=== PATIENT | female | born 1960 | race Caucasian/White ===

== ENCOUNTER 2018-05-21 17:48 | Inpatient (IN) | payer BC ==
[2018-05-21] MEDS ORDERED: ACETAMINOPHEN 325 MG TABLET ONE (18:53)
[2018-05-21 18:54] LABS: Absolute Monocytes 1.7 K/uL (0.1-1.3); Absolute Neutrophil 11.6 K/uL (1.8-8.0); Basophils % 0.6 % (0-1.3); Eosinophils % 3.5 % (0-4.4); Hematocrit 42.5 % (36.0-45.0); Lymphocytes % 17.6 % (15.3-44.8); Monocytes % 10.1 % (3.3-12.3); RBC Red Blood Cell Count 4.65 M/uL (3.86-4.86)
[2018-05-21] MEDS ORDERED: NA CHLORIDE 0.9% 1,000 ML ONE (18:54)
[2018-05-21 19:18] LABS: Albumin 3.4 g/dL (3.4-5.0); Bilirubin Direct 0.3 mg/dL (0-0.2); Bilirubin Total 1.3 mg/dL (0.2-1.0); Potassium 4.8 mmol/L (3.5-5.1); Protein, Total 8.5 g/dL (6.4-8.2)
[2018-05-21] MEDS ORDERED: MORPHINE 2 MG/ML SYR IV PRN (20:22)
[2018-05-21] MEDS ORDERED: ONDANSETRON 4 MG/2 ML VIAL IV PRN (20:22)
[2018-05-21] MEDS ORDERED: ACETAMINOPHEN 500 MG TAB PO PRN (20:22)
--- NOTE | 2018-05-21 20:27 | RAD REPORT ---
EXAM DESCRIPTION: CT - Chest Abd Pelvis Wo Con - 05/21/2018 7:59 pm CLINICAL HISTORY: Chest pain, abdominal pain COMPARISON: CT chest 2010, CT abdomen 2010 TECHNIQUE: Axial 5 millimeter thick images of the chest abdomen and pelvis were obtained without ora l or IV contrast. Sagittal and coronal reconstruction images were generated and reviewed. All CT scans are performed using dose optimization technique as appropriate and may include automated exposure control or mA/KV adjustment according to patient size. FINDINGS: Patchy reticulonodular opacities are present in the right upper lobe and minimally in the right middle and right lower lobes. These are most likely areas of pneumonia. No suspicious mass lesi on. Small nodule along the major fissure on the right not clearly different from prior imaging. No pn eumothorax or pleural effusion. No chest wall mass or abnormal axillary lymphadenopathy seen. Media stinal and hilar regions show no mass or lymphadenopathy. No significant cardiac finding. Bronchial calcifications are present. No endobronchial lesion. Esophagus is grossly normal but limited in asses sment. The liver, spleen and pancreas show no significant findings. Gallbladder and biliary tree are normal . Symmetric renal function is seen with no hydronephrosis, mass or other significant finding. No adren al abnormalities. No urinary bladder abnormalities. Uterus is absent. No suspicious ovarian finding . Small remnant ovarian cyst noted on the right. This has not change from 2011. No dilated bowel loops or focal ball bowel wall thickening. No free air, free fluid or inflammatory stranding. Small mesenteric lymph nodes are present. Disc and bony degenerative changes are present. IMPRESSION: Patchy pneumonia changes are present in the right lung field seen as reticulonodular opa [place] primarily right upper lobe. No dense consolidation or mass. Small mesenteric lymph nodes are present. These are nonspecific. The pattern is less pronounced than seen previously. These may be remnants of the patient's prior lymphoma history. No new or progressive lymphadenopathy.
[2018-05-21 20:35] LABS: Urine Amorphous Sediment 1+ /HPF (NONE SEEN); Urine Bacteria 20-50 /HPF (<20); Urine Culture Reflex Order REFLEXED; Urine Mucus LIGHT /HPF (NONE SEEN); Urine RBC <5 /HPF (NONE SEEN)
--- NOTE | 2018-05-21 20:37 | ER ---
Nurse's Notes [facility] Name: Tanisha Andreson Age: 58 yrs Sex: Female : 1960 Arrival Date: 05/21/2018 Time: 17:51 Bed 14 Private MD: Diagnosis: Pneumonia;UTI;Strep Pharyngitis;Dehydration Presentation: 05/21 18:00 Presenting complaint: Patient states: sore throat, nausea, vomiting,and diarrhea that aa5 began Saturday. Pt also c/o generalized weakness. 18:00 Transition of care: patient was not received from another setting of care. aa5 18:00 Method Of Arrival: Wheelchair aa5 18:00 Onset of symptoms was May 2018. aa5 18:00 Risk Assessment: Do you want to hurt yourself or someone else? Patient reports no aa5 desire to harm self or others. Initial Sepsis Screen: Does the patient meet any 2 criteria? Mean Arterial Pressure (MAP) < 65. Does the patient have a suspected source of infection? Yes: Other: Nausea/vomiting/diarrhea/sore throat. Care prior to arrival: None. 18:00 Acuity: SURENDRA 2 aa5 Historical: - Allergies: 18:14 Augmentin; aa5 18:14 Clindamycin; aa5 18:14 Erythromycin; aa5 18:14 Levaquin; aa5 18:14 Meperidine; aa5 18:14 Ciprofloxacin; aa5 18:14 Cefaclor; aa5 18:14 PENICILLINS; aa5 18:14 Latex, Natural Rubber; aa5 18:14 Macrobid; aa5 18:14 Vancomycin; aa5 18:14 Sulfa (Sulfonamide Antibiotics); aa5 18:14 Fluconazole; aa5 - PMHx: 18:00 HIV; Hypertension; Hodgkin's lymphoma (currently in remission); aa5 - PSHx: 18:00 Hysterectomy; aa5 - Immunization history:: Adult Immunizations unknown. - Ebola Screening: : No symptoms or risks identified at this time. - Social history:: Smoking status: unknown. Screenin:15 Abuse screen: Denies threats or abuse. Nutritional screening: No deficits noted. aa5 Tuberculosis screening: No symptoms or risk factors identified. Fall Risk None identified. Assessment: 18:00 General: Appears uncomfortable, Behavior is calm, cooperative. Pain: Complains of pain aa5 in buttocks Quality of pain is described as "raw from the diarrhea". Neuro: Level of Consciousness is awake, alert, obeys commands, Oriented to person, place, time, situation, Air Bag Builder are weak bilaterally Moves all extremities. Gait is steady, Speech is normal, Facial symmetry appears normal, Pupils are PERRLA. Cardiovascular: Heart tones S1 S2 present Rhythm is regular. Respiratory: Airway is patent Respiratory effort is even, unlabored, Respiratory pattern is regular, symmetrical, Breath sounds are clear bilaterally. GI: Abdomen is round non-distended, Bowel sounds present X 4 quads. Abd is soft and non tender X 4 quads. Reports diarrhea, nausea, vomiting. : No signs and/or symptoms were reported regarding the genitourinary system. EENT: Oral mucosa is dry. Reports nasal congestion sore throat . Derm: Skin is pink, warm \\T\\ dry. Musculoskeletal: Range of motion: intact in all extremities. 19:27 General: Appears in no apparent distress. uncomfortable, Behavior is calm, cooperative. ao Pain: Complains of pain in thoat Pain currently is 3 out of 10 on a pain scale. Neuro: Level of Consciousness is awake, alert, obeys commands, Oriented to person, place, time, situation, Moves all extremities. Full function Speech is normal, Facial symmetry appears normal, Pupils are PERRLA. Cardiovascular: Heart tones S1 S2 present Capillary refill < 3 seconds. Respiratory: Airway is patent Respiratory effort is even, unlabored, Respiratory pattern is regular, symmetrical. GI: Abdomen is round non-distended. : No signs and/or symptoms were reported regarding the genitourinary system. EENT: Reports nasal congestion throat pain. Derm: Skin is pink, warm \\T\\ dry. normal. Musculoskeletal: Range of motion: intact in all extremities. 20:30 Reassessment: Patient appears in no apparent distress at this time. Patient is alert, ao oriented x 3, equal unlabored respirations, skin warm/dry/pink. 21:29 Reassessment: Patient appears in no apparent distress at this time. Patient is alert, ao oriented x 3, equal unlabored respirations, skin warm/dry/pink. Patient to be admitted to the hospital. Waiting on report to be called. 22:31 Reassessment: Report called to ELZA Martinez. Patient to be taken to his room. ao Vital Signs: 18:00 BP 98 / 43; Pulse 89; Resp 18 S; Temp 101.1(O); Pulse Ox 96% on R/A; Weight 92.08 kg aa5 (R); Pain 6/10; 18:45 BP 110 / 52; Pulse 89; Resp 20 S; Pulse Ox 95% on R/A; aa5 19:26 BP 118 / 58; Pulse 80; Resp 18; Temp 100.3(O); Pulse Ox 95% on R/A; ao ED Course: 17:51 Patient arrived in ED. as 18:00 Arm band placed on. aa5 18:00 Patient has correct armband on for positive identification. Placed in gown. Bed in low aa5 position. Call light in reach. Side rails up X2. 18:05 Enid Hair, ELZA is Primary Nurse. aa5 18:07 Triage completed. aa5 18:11 Keny Garcia PA is PHCP. [facility] 18:11 Homer Gómez MD is Attending Physician. [facility] 18:38 Radiology exam delayed due to lab results not completed at this time. (BUN/Creatinine). wa 18:38 Initial lab(s) drawn, by de, sent to lab. Inserted saline lock: 22 gauge in right upper aa5 arm, using aseptic technique. Blood collected. 19:00 Report given to ELZA Sotelo. [facility] 19:16 Radiology exam delayed due to lab results not completed at this time. (BUN/Creatinine). jg6 19:58 Chest Abd Pelvis Wo Con In Process Unspecified. EDMS 19:58 CT completed. Patient tolerated procedure well. Patient moved to CT. Patient moved back wa from CT. 20:34 Antonio Bustillo MD is Hospitalizing Provider. [facility] 22:32 No provider procedures requiring assistance completed. Patient admitted, IV remains in ao place. Administered Medications: 18:45 Drug: NS 0.9% 1000 ml Route: IV; Rate: 1 bolus; Site: right upper arm; aa5 21:27 Follow up: IV Status: Completed infusion ao 18:45 Drug: Tylenol 650 mg Route: PO; aa5 21:26 Follow up: Response: No adverse reaction ao Outcome: 20:37 Decision to Hospitalize by Provider. [facility] 22:32 Admitted to Med/surg accompanied by tech, room 228, Report called to ELZA Martinez ao 22:32 Condition: stable 22:32 Instructed on the need for admit. 22:36 Patient left the ED. ao Signatures: Dispatcher [employer] EDMS Keny Garcia PA PA jmm Martinez, Amelia as Calderon, Audri RN RN aa5 Deepak De La Garza RN RN vincent Zelaya, Familia Jacob, Graciela gray6 Corrections: (The following items were deleted from the chart) 18:06 18:00 BP 98 / 43; aa5 aa5 18:16 18:00 BP 98 / 43; Pulse 89bpm; aa5 aa5 18:17 18:00 Initial Sepsis Screen: Does the patient meet any 2 criteria? No. Patient's aa5 initial sepsis screen is negative. Does the patient have a suspected source of infection? No. Patient's initial sepsis screen is negative. aa5 18:25 18:00 Acuity: SURENDRA 3 aa5 aa5
--- NOTE | 2018-05-21 20:38 | EDPHYS ---
Physician Documentation [facility] Name: Tanisha Anderson Age: 58 yrs Sex: Female : 1960 Arrival Date: 05/21/2018 Time: 17:51 Bed 14 Private MD: ED Physician Homer Gómez HPI: 05/21 18:36 This 58 yrs old Female presents to ER via Wheelchair with complaints of jmm Weakness, Vomiting. 18:36 The patient presents to the emergency department with nausea, vomiting, diarrhea. jmm Onset: The symptoms/episode began/occurred gradually, 4 day(s) ago. Possible causes: unknown. This is a 58 year old female with a history of htn, HIV, that presents to the ED with complaints of fever, sore throat, vomiting, diarrhea beginning this past Saturday. Patient states she takes her antiretroviral medications as directed. Patient is 4 years in remission of hodgekinds lymphoma, patient is not taking chemo therapy. . Historical: - Allergies: 18:14 Augmentin; aa5 18:14 Clindamycin; aa5 18:14 Erythromycin; aa5 18:14 Levaquin; aa5 18:14 Meperidine; aa5 18:14 Ciprofloxacin; aa5 18:14 Cefaclor; aa5 18:14 PENICILLINS; aa5 18:14 Latex, Natural Rubber; aa5 18:14 Macrobid; aa5 18:14 Vancomycin; aa5 18:14 Sulfa (Sulfonamide Antibiotics); aa5 18:14 Fluconazole; aa5 - PMHx: 18:00 HIV; Hypertension; Hodgkin's lymphoma (currently in remission); aa5 - PSHx: 18:00 Hysterectomy; aa5 - Immunization history:: Adult Immunizations unknown. - Ebola Screening: : No symptoms or risks identified at this time. - Social history:: Smoking status: unknown. ROS: 18:36 Constitutional: Negative for fever, chills, and weight loss, Eyes: Negative for injury, jmm pain, redness, and discharge, ENT: Negative for injury, pain, and discharge, Neck: Negative for injury, pain, and swelling, Cardiovascular: Negative for chest pain, palpitations, and edema, Respiratory: Negative for shortness of breath, cough, wheezing, and pleuritic chest pain. 18:36 ENT: Positive for sore throat. 18:36 Abdomen/GI: Positive for abdominal pain, vomiting, diarrhea. 18:36 All other systems are negative. Exam: 18:36 Constitutional: This is a well developed, well nourished patient who is awake, alert, jmm and in no acute distress. Head/Face: atraumatic. Eyes: EOMI, no conjunctival erythema appreciated Neck: Trachea midline, Supple Chest/axilla: Normal chest wall appearance and motion. Cardiovascular: Regular rate and rhythm. No edema appreciated Respiratory: Normal respirations, no respiratory distress appreciated 18:36 Skin: General appearance color normal MS/ Extremity: Moves all extremities, no obvious deformities appreciated, no edema noted to the lower extremities Neuro: Awake and alert, normal gait Psych: Behavior is normal, Mood is normal, Patient is cooperative and pleasant 18:36 ENT: Mouth: Oral mucosa: dry, Posterior pharynx: erythema, that is moderate. 18:36 Abdomen/GI: Inspection: abdomen appears normal, Bowel sounds: normal, Palpation: soft, mild abdominal tenderness, in all quadrants. 18:36 Back: ROM is normal. 18:36 Musculoskeletal/extremity: ROM: intact in all extremities. 18:36 Skin: Appearance: Color: normal in color. 18:36 Neuro: Orientation: is normal, Mentation: is normal, Memory: is normal. 18:36 Psych: Behavior/mood is pleasant, cooperative. Vital Signs: 18:00 BP 98 / 43; Pulse 89; Resp 18 S; Temp 101.1(O); Pulse Ox 96% on R/A; Weight 92.08 kg aa5 (R); Pain 6/10; 18:45 BP 110 / 52; Pulse 89; Resp 20 S; Pulse Ox 95% on R/A; aa5 19:26 BP 118 / 58; Pulse 80; Resp 18; Temp 100.3(O); Pulse Ox 95% on R/A; ao MDM: 18:11 Patient medically screened. karen 20:32 Data reviewed: vital signs, nurses notes. Counseling: I had a detailed discussion with haylee the patient and/or guardian regarding: the historical points, exam findings, and any diagnostic results supporting the discharge/admit diagnosis, lab results, radiology results, the need for further work-up and treatment in the hospital. ED course: I discussed the patient with Dr. Bustillo whom accepted admission. . 05/21 18:27 Order name: Basic Metabolic Panel; Complete Time: 19:21 [facility] 05/21 18:27 Order name: CBC with Diff; Complete Time: 19:14 [facility] 05/21 18:27 Order name: Creatinine for Radiology; Complete Time: 19:18 [facility] 05/21 18:27 Order name: Hepatic Function; Complete Time: 19:21 [facility] 05/21 18:27 Order name: Lipase; Complete Time: 19:21 [facility] 05/21 18:27 Order name: Strep; Complete Time: 19:24 [facility] 05/21 18:27 Order name: Flu; Complete Time: 19:24 [facility] 05/21 18:44 Order name: Procalcitonin; Complete Time: 19:42 [facility] 05/21 18:44 Order name: Lactate; Complete Time: 20:27 [facility] 05/21 18:44 Order name: Blood Culture Adult (2) [facility] 05/21 19:23 Order name: Urine Microscopic Only; Complete Time: 20:41 05/21 20:24 Order name: Urine Dipstick--Ancillary (enter results); Complete Time: 20:47 [facility] 05/21 20:27 Order name: CBC with Automated Diff [facility] 05/21 20:27 Order name: CBC with Automated Diff [facility] 05/21 18:27 Order name: IV Saline Lock; Complete Time: 18:40 [facility] 05/21 18:27 Order name: Labs collected and sent; Complete Time: 18:40 [facility] 05/21 19:23 Order name: Urine Dipstick-Ancillary (obtain specimen); Complete Time: 21:26 05/21 19:28 Order name: Chest Abd Pelvis Wo Con; Complete Time: 20:29 [facility] 05/21 20:27 Order name: CONS Pharmacy Consult [facility] 05/21 20:27 Order name: Regular EDMS 05/21 20:27 Order name: Comprehensive Metabolic Panel [facility] 05/21 20:27 Order name: Comprehensive Metabolic Panel EDNM Administered Medications: 18:45 Drug: NS 0.9% 1000 ml Route: IV; Rate: 1 bolus; Site: right upper arm; aa5 21:27 Follow up: IV Status: Completed infusion ao 18:45 Drug: Tylenol 650 mg Route: PO; aa5 21:26 Follow up: Response: No adverse reaction ao Disposition: 05/22 08:00 Co-signature as Attending Physician, Homer Gómez MD I agree with the assessment and karen plan of care. Disposition: 05/21/18 20:37 Hospitalization ordered by Antonio Bustillo for Observation. Preliminary diagnosis are Pneumonia, UTI, Strep Pharyngitis, Dehydration. - Bed requested for Telemetry/MedSurg (observation). - Status is Observation. ao - Condition is Stable. - Problem is new. - Symptoms have improved. UTI on Admission? Yes Signatures: Dispatcher [employer] [facility] Homer Gómez MD MD cha Mickail, Joel, PA PA [facility] Enid Hair, RN RN aa5 Honey Jacob, RN RN cg Deepak De La Garza RN RN ao Bonner, MD NABIL Prince gs Corrections: (The following items were deleted from the chart) 05/21 19:28 18:28 Chest Abdomen Pelvis W Con+CT.RAD.BRZ ordered. [facility] 20:51 20:37 Hospitalization Ordered by Antonio Bustillo MD for Observation. Preliminary cg diagnosis is Pneumonia; UTI; Strep Pharyngitis; Dehydration. Bed requested for Telemetry/MedSurg (observation). Status is Observation. Condition is Stable. Problem is new. Symptoms have improved. UTI on Admission? Yes. [facility] 22:36 20:51 05/21/2018 20:37 Hospitalization Ordered by Antonio Bustillo MD for Observation. ao Preliminary diagnosis is Pneumonia; UTI; Strep Pharyngitis; Dehydration. Bed requested for Telemetry/MedSurg (observation). Status is Observation. Condition is Stable. Problem is new. Symptoms have improved. UTI on Admission? Yes. cg
[2018-05-21 20:44] LABS: Urine Blood TRACE (NEG); Urine Glucose NEGATIVE (NEG); Urine Protein 1+ (NEG); Urine Specific Gravity 1.025 (1.005-1.030); Urine pH 5.5 (5.0-7.0)
[2018-05-21 22:53] VITALS: BMI 35.9
[2018-05-21] MEDS: NA CHLORIDE 0.9% 1,000 ML IV SCH (23:30)
[2018-05-22 06:06] LABS: Absolute Lymphocytes (CBC) 2.3 K/uL (0.7-4.9); Absolute Monocytes 1.7 K/uL (0.1-1.3); Absolute Neutrophil 8.3 K/uL (1.8-8.0); Basophils % 0.6 % (0-1.3); Eosinophils % 4.6 % (0-4.4); Hematocrit 37.2 % (36.0-45.0); Lymphocytes % 17.6 % (15.3-44.8); Monocytes % 12.9 % (3.3-12.3); RBC Red Blood Cell Count 4.08 M/uL (3.86-4.86)
[2018-05-22 06:23] LABS: Albumin 3.2 g/dL (3.4-5.0); Potassium 4.1 mmol/L (3.5-5.1); Protein, Total 7.7 g/dL (6.4-8.2)
[2018-05-22] MEDS: NA CHLORIDE 0.9% 1,000 ML IV SCH ×2 (08:40→16:47)
[2018-05-22] MEDS ORDERED: Meropenem 500 MG VIAL IV SCH (09:00)
[2018-05-22] MEDS: Meropenem 500 MG in NA CHLORIDE 0.9% 100 ML IV SCH ×2 (09:04→16:47)
--- NOTE | 2018-05-22 16:46 | P.PN ---
Subjective Date of Service: 05/22/18 Subjective: No C/O voiced, Improving, Doing well, Other (Diarrhea x 4 overnight and diarrhea x 2 today) Review of Systems 10-point ROS is otherwise unremarkable Physical Examination - Vital Signs Temperature: 99.6 F Blood Pressure: 109/52 Pulse: 86 Respirations: 18 Pulse Ox (%): 98 - Physical Exam General: Alert, In no apparent distress HEENT: Atraumatic, PERRLA, EOMI Neck: Supple, JVD not distended Respiratory: Clear to auscultation bilaterally, Normal air movement Cardiovascular: Regular rate/rhythm, Normal S1 S2 Gastrointestinal: Normal bowel sounds, No tenderness Musculoskeletal: No tenderness Integumentary: No rashes Neurological: Normal speech, Normal tone, Normal affect Lymphatics: No axilla or inguinal lymphadenopathy - Studies Laboratory Data (last 24 hrs) 05/22/18 05:28: Sodium 138, Potassium 4.1, BUN 32 H, Creatinine 1.51 H, Glucose 97, Total Bilirubin 1.0, AST 50 H, ALT 28, Alkaline Phosphatase 89 05/22/18 05:28: WBC 12.9 H D, Hgb 12.8, Hct 37.2, Plt Count 161 05/21/18 18:38: Creatinine 1.69 H 05/21/18 18:38: WBC 17.1 H, Hgb 14.5, Hct 42.5, Plt Count 193 05/21/18 18:38: Sodium 136, Potassium 4.8, BUN 32 H, Creatinine 1.65 H, Glucose 109 H, Total Bilirubin 1.3 H, AST 56 H, ALT 29, Alkaline Phosphatase 91, Lipase 62 L Microbiology Data (last 24 hrs): 05/21/18 18:38 Blood - Blood Anaerobic Blood Culture - Final 05/21/18 19:13 Blood - Blood Anaerobic Blood Culture - Final 05/21/18 18:40 Nasopharnyx Influenza Type A Antigen Screen - Final 05/21/18 18:40 Nasopharnyx Influenza Type B Antigen Screen - Final 05/21/18 18:40 Throat Group A Streptococcus Rapid Screen - Final Medications List Reviewed: Yes Assessment And Plan - Current Problems (Diagnosis) (1) Sepsis Current Visit: Yes Status: Acute Plan: Sepsis most likely secondary to pneumonia versus UTI versus strep throat versus colitis -currently on IV meropenem due to multidrug allergy -strep culture positive for strep A -stool cultures pending at this time -blood cultures pending at this -will monitor patient closely with IV fluids and IV antibiotics Qualifiers: Sepsis type: sepsis due to unspecified organism Qualified Code(s): A41.9 - Sepsis, unspecified organism (2) Diarrhea Current Visit: Yes Status: Acute Plan: Presumed infectious diarrhea. 2 nonbloody non mucousy. Mostly liquidy diarrhea -continue to monitor closely -IV fluids -stool culture pending at this time Qualifiers: Diarrhea type: presumed infectious Qualified Code(s): R19.7 - Diarrhea, unspecified (3) PNA (pneumonia) Current Visit: Yes Status: Acute Plan: Pneumonia on the chest x-ray -on IV meropenem at this time -sputum culture pending -will monitor close Qualifiers: Pneumonia type: due to unspecified organism Laterality: unspecified laterality Lung location: unspecified part of lung Qualified Code(s): J18.9 - Pneumonia, unspecified organism (4) HIV (human immunodeficiency virus infection) Current Visit: Yes Status: Chronic Plan: Chronic HIV infection -CD4 count within normal limits and viral load undetectable Qualifiers: HIV symptom status: asymptomatic Qualified Code(s): Z21 - Asymptomatic human immunodeficiency virus [HIV] infection status (5) Lymphoma Current Visit: Yes Status: Chronic Qualifiers: Lymphoma type: unspecified type Lymphoma site: unspecified region Qualified Code(s): C85.90 - Non-Hodgkin lymphoma, unspecified, unspecified site - Plan Pending clinical improvement at this time. Will await cultures at this time. Patient is at high risk for Cryptosporidium, and other HIV related infections. Will follow up with culture and continue with IV meropenem till than. Discharge Plan: Home Plan to discharge in: 48 Hours - Code Status/Comfort Care Code Status Assessed: Yes Critical Care: No
[2018-05-23] MEDS: Meropenem 500 MG in NA CHLORIDE 0.9% 100 ML IV SCH ×3 (00:54→16:33)
[2018-05-23] MEDS: NA CHLORIDE 0.9% 1,000 ML IV SCH ×2 (00:54→14:12)
--- NOTE | 2018-05-23 07:51 | P.HP ---
Certification for Inpatient Patient admitted to: Inpatient With expected LOS: >2 Midnights Patient will require the following post-hospital care: None Practitioner: I am a practitioner with admitting privileges, knowledge of patient current condition, hospital course, and medical plan of care. Services: Services provided to patient in accordance with Admission requirements found in Title 42 Section 412.3 of the Code of Federal Regulations Patient History Date of Service: 05/21/18 Reason for admission: UTI, strep pharyngitis, sepsis, HIV, history of lymphoma History of Present Illness: Patient is a 58-year-old female with history of lymphoma which is in remission as well as HIV. HIV was diagnosed 4 years ago. A year later she got the diagnosis of lymphoma. Not exactly sure if he was Hodgkin's were non-Hodgkin' s. But non-Hodgkin's has in association with HIV. Patient states she has been in remission for about the last 3 years. She also states she takes her HIV medicines regularly. She said her CD4 count is normal and her HIV is undetectable. Her daughter is going to get the records from the house and bring it to the hospital. CD4 count and HIV 1 viral load while she is here she has been having difficulty with swallowing as well as some dysuria. She normally stays in bed for 2-3 days and she starts feeling better. She has not taken any of her HIV medicines over the last 2-3 days. In the emergency room she was found have strep pharyngitis and a urinary tract infection. She also has a pneumonic process. Her CT scan also reveals some mesenteric lymphadenopathy. This will need to be followed as an outpatient. Will check her blood cultures as well. Cover her with broad-spectrum antibiotics for now and then wait for further labs to come back. She will be admitted to the hospital for further evaluation. Allergies amoxicillin Allergy (Verified 05/21/18 23:09) Itching/Hives/Rash cefaclor Allergy (Verified 05/21/18 23:09) Itching/Hives/Rash ciprofloxacin Allergy (Verified 05/21/18 23:09) Itching/Hives/Rash clindamycin Allergy (Verified 05/21/18 23:09) Itching/Hives/Rash erythromycin base Allergy (Verified 05/21/18 23:09) Itching/Hives/Rash fluconazole Allergy (Verified 05/21/18 23:09) Rash levofloxacin Allergy (Verified 05/21/18 23:09) Itching/Hives/Rash meperidine Allergy (Verified 05/21/18 23:09) Itching nitrofurantoin Allergy (Verified 05/21/18 23:09) Itching/Hives/Rash Penicillins Allergy (Verified 05/21/18 23:09) Rash Sulfa (Sulfonamide Antibiotics) Allergy (Verified 05/21/18 23:09) Itching/Hives/Rash vancomycin Allergy (Verified 05/21/18 23:09) Itching/Hives/Rash latex Adverse Reaction (Verified 05/21/18 23:09) Anaphylaxis Home Medications: Amlodipine Besylate [Norvasc] 2.5 mg PO DAILY 05/21/18 Dolutegravir Sodium [Tivicay] 50 mg PO DAILY 05/21/18 Emtricitabine/Tenofov Alafenam [Descovy 200-25 mg Tablet] 1 each PO DAILY Levothyroxine [Synthroid] 50 mcg PO [id number] 05/21/18 Levothyroxine [Synthroid] 100 mcg PO [id number] 05/21/18 Rosuvastatin Calcium 10 mg PO BEDTIME 05/21/18 Sertraline HCl 25 mg PO DAILY 05/21/18 - Past Medical/Surgical History Has patient received pneumonia vaccine in the past: Yes Diabetic: No -: Lymphoma -: HIV -: HTN -: Ectopic -: Hysterectomy -: Exp Lap x2 -: Appendectomy - Family History Father Medical History: Hypertension, Diabetes Mother Medical History: Hypertension, Diabetes - Social History Smoking Status: Former smoker Alcohol use: No CD- Drugs: No Caffeine use: Yes Place of Residence: Home Review of Systems 10-point ROS is otherwise unremarkable Physical Examination - Vital Signs Temperature: 97.2 F Blood Pressure: 129/61 Pulse: 70 Respirations: 17 Pulse Ox (%): 97 - Physical Exam General: Alert, In no apparent distress, Oriented x3 HEENT: Atraumatic, Normocephalic, Other (Erythema and edema with anterior cervical lymphadenopathy) Neck: Supple, 2+ carotid pulse no bruit, LAD Respiratory: Clear to auscultation bilaterally, Normal air movement Cardiovascular: Normal pulses, Regular rate/rhythm, Normal S1 S2 Gastrointestinal: Soft and benign, Non-distended, No tenderness, No rebound, No guarding Musculoskeletal: No clubbing Integumentary: No significant lesion, No warmth, No cyanosis - Studies Microbiology Data (last 24 hrs): 05/21/18 20:17 Clean Catch Urine [place] Count - Final 05/21/18 20:17 Clean Catch Urine - Final No growth. 05/21/18 19:13 Blood - Blood Anaerobic Blood Culture - Final 05/21/18 18:38 Blood - Blood Anaerobic Blood Culture - Final Assessment & Plan - Problems (Diagnosis) (1) Strep pharyngitis Current Visit: Yes Status: Acute (2) UTI (urinary tract infection) Current Visit: Yes Status: Acute (3) Diarrhea Current Visit: Yes Status: Acute Qualifiers: Diarrhea type: presumed infectious Qualified Code(s): R19.7 - Diarrhea, unspecified (4) PNA (pneumonia) Current Visit: Yes Status: Acute Qualifiers: Pneumonia type: due to unspecified organism Laterality: unspecified laterality Lung location: unspecified part of lung Qualified Code(s): J18.9 - Pneumonia, unspecified organism (5) HIV (human immunodeficiency virus infection) Current Visit: Yes Status: Chronic Qualifiers: HIV symptom status: asymptomatic Qualified Code(s): Z21 - Asymptomatic human immunodeficiency virus [HIV] infection status (6) Lymphoma Current Visit: Yes Status: Chronic Qualifiers: Lymphoma type: unspecified type Lymphoma site: unspecified region Qualified Code(s): C85.90 - Non-Hodgkin lymphoma, unspecified, unspecified site - Plan 1. Continue with IV antibiotics 2. Awaiting stool, urine, sputum, and blood culture 3. Repeat chest x-ray in the morning 4. CD4 count and viral load; family may bring records as well 5. Pulmonary consultation if symptoms do not improve 6. Continue with nebs as needed 7. O2 per protocol 8. Continue with gentle hydration 9. Repeat labs including CBC and renal function in a.m. 10. Outpatient repeat CT scan to make sure mesenteric lymphadenopathy has resolved 11. GI and DVT prophylaxis Discharge Plan: Home Plan to discharge in: Greater than 2 days - Advance Directives Does patient have a Living Will: No Does patient have a Durable POA for Healthcare: No - Code Status/Comfort Care Code Status Assessed: Yes Code Status: Full Code Critical Care: No Time Spent Managing PTS Care (In Minutes): 45
[2018-05-23] MEDS: BENZONATATE 100 MG CAP PO PRN ×2 (09:21→16:42)
[2018-05-23] MEDS: LORATADINE 10 MG TAB PO SCH (09:21)
[2018-05-23] MEDS: GUAIFENESIN 600 MG SA TAB PO SCH ×2 (09:21→21:26)
[2018-05-23 09:22] LABS: Absolute Lymphocytes (CBC) 1.7 K/uL (0.7-4.9); Absolute Monocytes 0.7 K/uL (0.1-1.3); Absolute Neutrophil 4.5 K/uL (1.8-8.0); Basophils % 0.4 % (0-1.3); Eosinophils % 5.5 % (0-4.4); Hematocrit 33.3 % (36.0-45.0); Lymphocytes % 23.6 % (15.3-44.8); MPV 10.3 fL (7.6-11.3); Monocytes % 9.7 % (3.3-12.3); RBC Red Blood Cell Count 3.64 M/uL (3.86-4.86)
[2018-05-23 09:45] LABS: Magnesium 2.2 mg/dL (1.8-2.4); Potassium 3.7 mmol/L (3.5-5.1)
[2018-05-23] MEDS ORDERED: POTASSIUM CL SA 10 MEQ TAB PO ONE (10:48)
--- NOTE | 2018-05-23 11:56 | P.PN ---
Subjective Date of Service: 05/23/18 Chief Complaint: UTI, strep pharyngitis, sepsis, HIV, history of lymphoma Subjective: No new changes, No C/O voiced, Tolerating diet, Improving <Enmanuel Brown - Last Filed: 05/23/18 11:52> Date of Service: 05/23/18 <Marcial Thomas - Last Filed: 05/23/18 14:25> Review of Systems General: Unremarkable Eyes: Unremarkable ENT: Unremarkable Respiratory: Unremarkable Cardiovascular: Unremarkable Gastrointestinal: Unremarkable Musculoskeletal: Unremarkable Integumentary: Unremarkable Neurological: Unremarkable Lymphatics: Unremarkable <Enmanuel Brown - Last Filed: 05/23/18 11:52> Physical Examination - Vital Signs Temperature: 97.2 F Blood Pressure: 129/61 Pulse: 70 Respirations: 17 Pulse Ox (%): 97 - Physical Exam General: Alert, In no apparent distress, Oriented x3 HEENT: Normocephalic, PERRLA, Mucous membr. moist/pink Neck: Supple, 2+ carotid pulse no bruit, JVD not distended, No Thyromegaly Respiratory: Clear to auscultation bilaterally, Normal air movement Cardiovascular: No edema, Normal pulses, Regular rate/rhythm, Normal S1 S2, No gallops, No rubs, No murmurs Capillary refill: <2 Seconds Gastrointestinal: Normal bowel sounds, Soft and benign, Non-distended, No tenderness, No masses, No rebound, No guarding Musculoskeletal: No clubbing, No swelling, No contractures, No erythema, No tenderness, No warmth Integumentary: No rashes, No breakdown, No significant lesion, No tenderness/ swelling, No erythema, No warmth, No cyanosis Neurological: Normal speech, Normal strength at 5/5 x4 extr, Normal tone, Sensation intact, Cranial nerves 3-12 intact, Normal reflexes 2+, Normal affect - Studies Microbiology Data (last 24 hrs): 05/21/18 20:17 Clean Catch Urine [place] Count - Final 05/21/18 20:17 Clean Catch Urine - Final No growth. 05/21/18 19:13 Blood - Blood Anaerobic Blood Culture - Final 05/21/18 18:38 Blood - Blood Anaerobic Blood Culture - Final Medications List Reviewed: Yes <Enmanuel Brown - Last Filed: 05/23/18 11:52> - Studies Microbiology Data (last 24 hrs): 05/21/18 20:17 Clean Catch Urine [place] Count - Final 05/21/18 20:17 Clean Catch Urine - Final No growth. 05/21/18 19:13 Blood - Blood Anaerobic Blood Culture - Final 05/21/18 18:38 Blood - Blood Anaerobic Blood Culture - Final <Marcial Thomas - Last Filed: 05/23/18 14:25> Assessment & Plan - Problems (Diagnosis) (1) Diarrhea Current Visit: Yes Status: Acute Qualifiers: Diarrhea type: presumed infectious Qualified Code(s): R19.7 - Diarrhea, unspecified (2) PNA (pneumonia) Current Visit: Yes Status: Acute Qualifiers: Pneumonia type: due to unspecified organism Laterality: unspecified laterality Lung location: unspecified part of lung Qualified Code(s): J18.9 - Pneumonia, unspecified organism (3) Sepsis Current Visit: Yes Status: Acute Qualifiers: Sepsis type: sepsis due to unspecified organism Qualified Code(s): A41.9 - Sepsis, unspecified organism (4) Strep pharyngitis Current Visit: Yes Status: Acute (5) UTI (urinary tract infection) Current Visit: Yes Status: Acute (6) HIV (human immunodeficiency virus infection) Current Visit: Yes Status: Chronic Qualifiers: HIV symptom status: asymptomatic Qualified Code(s): Z21 - Asymptomatic human immunodeficiency virus [HIV] infection status (7) Lymphoma Current Visit: Yes Status: Chronic Qualifiers: Lymphoma type: unspecified type Lymphoma site: unspecified region Qualified Code(s): C85.90 - Non-Hodgkin lymphoma, unspecified, unspecified site Plan to discharge in: 48 Hours (Patient overall doing better. Sinus congestion and sore throat present. Added medications for that and to help her eat. Adding PT today. Still pending cultures. Merem will continue) <Enmanuel Brown - Last Filed: 05/23/18 11:52> Physician Review Additional Text: Patient seen and evaluated with EDWARD Loyola. Agree with plan of care. Will increase IV fluids. Provide probiotics, Mucinex and medication for cough. Wean off oxygen. Recheck CXR and Lab tomorrow. Anticipate discharge home in the next [address] Muro to take over tomorrow. Time Spent Managing Pts Care (In Minutes): 55 <Marcial Thomas - Last Filed: 05/23/18 14:25>
[2018-05-23] MEDS: ENOXAPARIN 30 MG/0.3 ML SQ SCH (16:33)
[2018-05-23] MEDS: LACTOBACILLUS/ACIDOPHILUS TAB PO SCH (21:26)
[2018-05-23] MEDS: ROSUVASTATIN 10 MG TAB PO SCH (21:26)
[2018-05-24] MEDS: Meropenem 500 MG in NA CHLORIDE 0.9% 100 ML IV SCH ×3 (00:16→16:31)
[2018-05-24] MEDS: NA CHLORIDE 0.9% 1,000 ML IV SCH ×4 (00:17→21:34)
[2018-05-24] MEDS: LEVOTHYROXINE SOD 0.05 MG TABLET PO SCH (05:16)
[2018-05-24] MEDS: LEVOTHYROXINE SOD 0.1 MG TAB PO SCH (05:16)
[2018-05-24 06:47] LABS: Absolute Lymphocytes (CBC) 1.5 K/uL (0.7-4.9); Absolute Monocytes 0.5 K/uL (0.1-1.3); Absolute Neutrophil 3.2 K/uL (1.8-8.0); Basophils % 0.5 % (0-1.3); Eosinophils % 5.7 % (0-4.4); Hematocrit 33.8 % (36.0-45.0); Lymphocytes % 26.4 % (15.3-44.8); MPV 9.8 fL (7.6-11.3); Monocytes % 8.9 % (3.3-12.3); RBC Red Blood Cell Count 3.74 M/uL (3.86-4.86)
[2018-05-24 07:01] LABS: Potassium 3.8 mmol/L (3.5-5.1)
[2018-05-24] MEDS ORDERED: POTASSIUM CL SA 10 MEQ TAB PO ONE (09:00)
[2018-05-24] MEDS: SERTRALINE HCL 50 MG TAB PO SCH (10:32)
[2018-05-24] MEDS: LACTOBACILLUS/ACIDOPHILUS TAB PO SCH ×2 (10:32→21:34)
[2018-05-24] MEDS: GUAIFENESIN 600 MG SA TAB PO SCH ×2 (10:32→21:33)
[2018-05-24] MEDS: AMLODIPINE 2.5 MG TAB PO SCH (10:33)
[2018-05-24] MEDS: LORATADINE 10 MG TAB PO SCH (10:33)
--- NOTE | 2018-05-24 11:15 | RAD REPORT ---
EXAM DESCRIPTION: RAD - Chest Pa And Lat (2 Views) - 05/24/2018 6:10 am CLINICAL HISTORY: follow up pneumonia Chest pain. COMPARISON: CHEST SINGLE VIEW dated 08/07/2010; CHEST SINGLE VIEW dated 08/06/2010; CHEST PA AND LAT 2 VIEW dated 05/03/2009; Chest Abd Pelvis Wo Con dated 05/21/2018 FINDINGS: Moderate reticular opacities are present bilaterally, greatest in the right upper lobe, li kacey representing atypical pneumonia. No focal consolidation seen compatible with bacterial pneumonia . The heart is normal in size. No displaced fractures.
[2018-05-24] MEDS: ENOXAPARIN 30 MG/0.3 ML SQ SCH (16:31)
--- NOTE | 2018-05-24 18:05 | PN ---
Date of Progress Note: 05/24/2018 History: The patient seen and examined. Chart reviewed and case discussed with RN. The patient sta bacilio she is having significant amount of diarrhea, however, now the stool is more formed. Denies any acute pain. Medications: List reviewed. Physical Examination: Vital Signs: Temperature 98.1, heart rate 97, blood pressure 135/62, O2 saturations 97% on room air. General: Awake, alert, oriented x3. Morbidly obese female. Ill-appearing. CV: S1, S2. Regular rate and rhythm. Peripheral pulses present. Respiratory: Moving air well bilaterally. No wheezing or stridor. Gastrointestinal: Abdomen is soft, nondistended. Positive bowel sounds. Mild tenderness to palpati on. Extremities: No clubbing, cyanosis, or edema. Neurologic: Nonfocal. Cranial nerves 2-12 intact grossly. Laboratory Data: Sodium 141, potassium 3.8, chloride 108, CO2 29, BUN 10, creatinine 0.93, glucose 9 1, calcium 8, magnesium 2. WBC 5.5, H and H 11.8 and 33.8, platelets 136. Stool culture shows reduc ed fecal liborio. Ova, parasites pending. Fecal leukocytes, few 1-9. C. diff assay is negative. Rap id strep is positive. Blood cultures, no growth to date. Chest x-ray shows moderate reticular opaci ties present bilaterally, greatest in the right upper lobe, likely representing atypical pneumonia. No focal consolidations seen compatible with bacterial pneumonia. The heart is normal in size. No d isplaced fractures. Assessment/plan: A 58-year-old female with: 1.Right upper lobe pneumonia, likely bacterial. Chest x-ray reviewed personally. We will continue with IV antibiotics. Follow up on sputum cultures. Blood cultures, no growth to date. 2.Diarrhea. Clostridium difficile has been ruled out. The patient's stool culture still pending. Fecal leukocyte stain is positive. We will continue with symptomatic treatment, IV hydration, likely viral versus bacterial gastroenteritis. 3.Sepsis secondary to pneumonia, improving. We will continue IV antibiotics and follow up on cultur es. 4.Streptococcal pharyngitis. We will continue antibiotics. 5.Urinary tract infection, acute cystitis. Urine culture shows no growth. The patient is being imani ated with antibiotics. 6.Human immunodeficiency virus, asymptomatic. Diarrhea may be related to her human immunodeficiency virus. 7.Lymphoma, non-Hodgkin's. Deep vein thrombosis prophylaxis addressed. Plan: Continue to monitor. Continue symptomatic treatment likely discharge in the next 24 hours dep ending on clinical improvement. /EMMETT Voice ID: [id number] Report ID: [id number]
[2018-05-24] MEDS: ROSUVASTATIN 10 MG TAB PO SCH (21:33)
[2018-05-25] MEDS: Meropenem 500 MG in NA CHLORIDE 0.9% 100 ML IV SCH ×3 (00:46→16:14)
[2018-05-25] MEDS: NA CHLORIDE 0.9% 1,000 ML IV SCH ×2 (05:00→16:13)
[2018-05-25] MEDS: LEVOTHYROXINE SOD 0.1 MG TAB PO SCH (05:44)
[2018-05-25] MEDS: LEVOTHYROXINE SOD 0.05 MG TABLET PO SCH (05:44)
[2018-05-25 06:54] LABS: Absolute Lymphocytes (CBC) 1.2 K/uL (0.7-4.9); Absolute Monocytes 0.5 K/uL (0.1-1.3); Absolute Neutrophil 2.2 K/uL (1.8-8.0); Eosinophils % 7.8 % (0-4.4); Hematocrit 32.2 % (36.0-45.0); Lymphocytes % 27.8 % (15.3-44.8); MPV 10.2 fL (7.6-11.3)
[2018-05-25 07:04] LABS: Magnesium 1.8 mg/dL (1.8-2.4); Potassium 3.6 mmol/L (3.5-5.1)
[2018-05-25] MEDS ORDERED: POTASSIUM CL SA 10 MEQ TAB PO ONE (09:00)
[2018-05-25] MEDS ORDERED: MAGNESIUM SULFATE 1 gm IVPB 1 GM/100 ML BAG IV ONE (09:00)
[2018-05-25] MEDS: DESCOVY PO SCH (09:38)
[2018-05-25] MEDS: LACTOBACILLUS/ACIDOPHILUS TAB PO SCH ×2 (09:39→21:00)
[2018-05-25] MEDS: TIVICAY 50 MG TABLET PO SCH (09:39)
[2018-05-25] MEDS: AMLODIPINE 2.5 MG TAB PO SCH (09:40)
[2018-05-25] MEDS: LORATADINE 10 MG TAB PO SCH (09:40)
[2018-05-25] MEDS: GUAIFENESIN 600 MG SA TAB PO SCH ×2 (09:40→21:06)
[2018-05-25] MEDS: SERTRALINE HCL 50 MG TAB PO SCH (09:40)
[2018-05-25] MEDS: ENOXAPARIN 30 MG/0.3 ML SQ SCH (16:16)
--- NOTE | 2018-05-25 17:11 | PN ---
Date of Progress Note: 05/25/2018 Subjective: The patient seen and examined. Chart reviewed and case discussed with RN. The patient states she is feeling better. Her diarrhea has improved. Clinically, she is better in terms of her pneumonia. Minimal shortness of breath. No significant cough. Medications: List reviewed. Physical Examination: Vital Signs: Temperature 97.6, heart rate 63, blood pressure 138/63, respirations 17, O2 of 97% on r oom air. General: Awake, alert, oriented x3. Obese female, somewhat ill-appearing, not in any acute distress . CV: S1, S2. Regular rate and rhythm. Peripheral pulses present. Respiratory: Moving air well bilaterally. No wheezing or stridor. No use of accessory muscles. Gastrointestinal: Abdomen is soft, nontender, nondistended. Positive bowel sounds. No guarding or rigidity. Extremities: No clubbing or cyanosis or edema. Neurologic: Nonfocal. Laboratory Data: Sodium 139, potassium 3.6, chloride 106, CO2 29, BUN 7, creatinine 0.82, glucose 87 , calcium 7.9, magnesium 1.8. WBC 4.2, H and H 11.4/32.2, platelets 150, neutrophils 52%. Ova and p arasites pending. Fecal leukocyte stain shows few WBCs. Stool lactoferrin is pending. Stool cultur e, reduce fecal liborio, no Salmonella, Shigella, or Campylobacter isolated. Clostridium difficile is negative. Blood cultures, no growth to date. Group A strep is positive. Assessment: A 58-year-old female with: 1.Right upper lobe pneumonia, bacterial. Cultures are negative to date. Chest x-ray still shows so me abnormalities. The patient is on meropenem at this time. The patient has multiple allergies incl uding penicillin, cephalosporins, Levaquin, azithromycin, and doxycycline as well as clindamycin and sulfa medications. Difficult to transition the patient to p.o. antibiotics. We will consult Infecti ous Disease. The patient may need to finish off course of 7 days of meropenem and be discharged. 2.Diarrhea. Clostridium difficile ruled out. Stool culture is negative. Fecal leukocyte stain is positive. The patient has HIV as the risk for Cryptosporidium and other infectious etiologies. Ova and parasite is pending. Again, we will consult ID for further treatment course. 3.Sepsis secondary to pneumonia, resolved. 4.Streptococcal pharyngitis. Continue antibiotics. 5.Urinary tract infection, acute cystitis. Culture shows no growth. The patient is being treated w ith IV antibiotics and continue for now. 6.Human immunodeficiency virus, asymptomatic. Continues to have diarrhea. CD4 count unknown. 7.Non-Hodgkin's lymphoma. 8.Deep vein thrombosis prophylaxis addressed. Plan: ID consultation. Discharge home once able to transition to p.o. antibiotics. Due to the list of her allergies, the patient may need desensitization or trial while in the hospital. /EMMETT Voice ID: [id number] Report ID: [id number]
[2018-05-25] MEDS: ROSUVASTATIN 10 MG TAB PO SCH (21:05)
[2018-05-26] MEDS: NA CHLORIDE 0.9% 1,000 ML IV SCH ×2 (01:00→05:08)
[2018-05-26] MEDS: Meropenem 500 MG in NA CHLORIDE 0.9% 100 ML IV SCH ×3 (01:10→17:09)
[2018-05-26] MEDS: LEVOTHYROXINE SOD 0.05 MG TABLET PO SCH (05:09)
[2018-05-26] MEDS: LEVOTHYROXINE SOD 0.1 MG TAB PO SCH (05:09)
[2018-05-26 07:06] LABS: Absolute Monocytes 0.4 K/uL (0.1-1.3); Eosinophils % 7.3 % (0-4.4); Hematocrit 33.3 % (36.0-45.0); Lymphocytes % 26.1 % (15.3-44.8); MPV 9.5 fL (7.6-11.3); Monocytes % 11.3 % (3.3-12.3); RBC Red Blood Cell Count 3.73 M/uL (3.86-4.86)
[2018-05-26 07:13] LABS: Magnesium 2.1 mg/dL (1.8-2.4)
[2018-05-26] MEDS: DESCOVY PO SCH (09:07)
[2018-05-26] MEDS: LORATADINE 10 MG TAB PO SCH (09:08)
[2018-05-26] MEDS: TIVICAY 50 MG TABLET PO SCH (09:08)
[2018-05-26] MEDS: AMLODIPINE 2.5 MG TAB PO SCH (09:09)
[2018-05-26] MEDS: GUAIFENESIN 600 MG SA TAB PO SCH ×2 (09:09→22:50)
[2018-05-26] MEDS: LACTOBACILLUS/ACIDOPHILUS TAB PO SCH ×2 (09:09→22:50)
[2018-05-26] MEDS: SERTRALINE HCL 50 MG TAB PO SCH (09:10)
[2018-05-26] MEDS: FLUTICASONE 50MCG NASAL SPRAY NAS SCH ×2 (09:14→22:50)
[2018-05-26] MEDS: ENOXAPARIN 30 MG/0.3 ML SQ SCH (17:10)
--- NOTE | 2018-05-26 17:49 | P.PN ---
Subjective Date of Service: 05/26/18 Chief Complaint: UTI, strep pharyngitis, sepsis, HIV, history of lymphoma Subjective: Improving Physical Examination - Vital Signs Temperature: 97.4 F Blood Pressure: 129/62 Pulse: 82 Respirations: 16 Pulse Ox (%): 97 - Physical Exam General: Alert, In no apparent distress, Oriented x3, Cooperative HEENT: Atraumatic Neck: Supple Respiratory: Clear to auscultation bilaterally, Normal air movement Cardiovascular: Normal pulses, Regular rate/rhythm Gastrointestinal: Normal bowel sounds Neurological: Normal speech, Normal strength at 5/5 x4 extr, Normal tone, Normal affect - Studies Medications List Reviewed: Yes Assessment & Plan Discharge Plan: Home Plan to discharge in: 24 Hours Physician Review Additional Text: Impression: Right upper lobe pneumonia with noted sepsis Diarrhea UTI HIV Non-Hodgkin's lymphoma Plan: Patient improved. Continue with IV meropenem due to multiple allergies. Will complete 7 day course of medication. Patient to remain in hospital for the next 2 days after this patient can be discharged. Will recheck chest x-ray tomorrow. Continue current medications. Will monitor closely. Patient on DVT prophylaxis. Diarrhea improved. Time Spent Managing Pts Care (In Minutes): 55
--- NOTE | 2018-05-26 21:09 | CON ---
History Of Present Illness: This is a 58-year-old female with significant history of non-Hodgkin lym phoma and HIV. The patient is being followed by MD Gómez and her HIV doctor. Coming in with shor tness of breath. Denies any headache, nausea, vomiting, chest pain, abdominal pain, constipation, or diarrhea. The patient was not feeling well and was not taking her HIV medicine for the last [address] scan showed some lymphadenopathy in mediastinal and mesenteric area. The patient is current ly being treated with meropenem. Past Medical History: Includes non-Hodgkin lymphoma, HIV, high blood pressure, ectopic , hy sterectomy, exploratory laparotomy x2, appendectomy. Social History: Tobacco, quit 12 years ago. No alcohol. Family History: Noncontributory. Medications: Meropenem. See MARs for other medication. Allergies: INCLUDE PENICILLIN, SULFA DRUGS, CEPHALOSPORINS, DOXYCYCLINE, AND ERYTHROMYCIN CLINDAMYCI N, QUINOLONES, FLUCONAZOLE, ZITHROMAX, MEPERIDINE, VANCOMYCIN, AND LATEX. Review of Systems: A 10-point review was performed. Physical Examination: General: This is a 58-year-old female, sitting in easy chair, not in any acute cardiopulmonary distr ess. Vital Signs: Temperature 97.4, pulse 82, respirations 16, blood pressure 129/62. HEENT: Unremarkable. Neck: Supple. Lungs: Basal crackles. Heart: S1, S2. Regular. Abdomen: Soft, nontender. Bowel sounds present. Extremity: No edema. Laboratory Data: WBC 3.7, down from 17,000, hemoglobin 11.5, platelets 167. Chemistry shows sodium 138, potassium 4, chloride 106, bicarb 27, BUN 7, creatinine 0.8, glucose 95. Micro data shows blood cultures negative for 24 hours. Urine, no growth. CT of abdomen and pelvis shows patchy pneumonia changes are present in the right lung field, seen on reticulonodular opacity primary right upper lobe . No dense consolidation or mass. A small mesenteric lymph nodes are present. These are nonspecifi c. The pattern is less pronounced than seen previously. These may be remnants of the patient's prio r lymphoma history. Chest x-ray done day before yesterday shows moderate radicular opacity present b ilaterally, greatest in the right upper lobe, likely representing atypical pneumonia and no focal con solidation seen compatible with bacterial pneumonia. Assessment And Plan: Right-sided pneumonitis in a 58-year-old female with significant history of hum an immunodeficiency virus and non-Hodgkin lymphoma, being treated for almost a year at [facility]. Currently being treated with meropenem. We will continue antibiotic for total of 1 week. The patien t has multiple allergies, which significantly decrease the choice of antibiotic regimen at this time. We will follow the patient closely. Thank you for consult. KAYT/EMMETT Voice ID: [id number] Report ID: [id number]
[2018-05-26] MEDS: ROSUVASTATIN 10 MG TAB PO SCH (22:50)
[2018-05-27] MEDS: Meropenem 500 MG in NA CHLORIDE 0.9% 100 ML IV SCH ×3 (01:50→17:17)
[2018-05-27] MEDS: LEVOTHYROXINE SOD 0.1 MG TAB PO SCH (05:04)
[2018-05-27] MEDS: LEVOTHYROXINE SOD 0.05 MG TABLET PO SCH (05:04)
--- NOTE | 2018-05-27 08:24 | RAD REPORT ---
EXAM DESCRIPTION: RAD - Chest Pa And Lat (2 Views) - 05/27/2018 8:03 am CLINICAL HISTORY: Follow up pneumonia Chest pain. COMPARISON: Chest Pa And Lat (2 Views) dated 05/24/2018; CHEST SINGLE VIEW dated 08/07/2010; CHEST SIN GLE VIEW dated 08/06/2010; CHEST PA AND LAT 2 VIEW dated 05/03/2009; Chest Abd Pelvis Wo Con dated 05/21 FINDINGS: No significant change is seen in the bilateral reticular opacities since 05/24/2018. The h eart is normal in size. No displaced fractures. IMPRESSION: Stable chest since 05/24/2018.
[2018-05-27] MEDS: LORATADINE 10 MG TAB PO SCH (09:00)
[2018-05-27] MEDS: TIVICAY 50 MG TABLET PO SCH (09:35)
[2018-05-27] MEDS: DESCOVY PO SCH (09:35)
[2018-05-27] MEDS: LACTOBACILLUS/ACIDOPHILUS TAB PO SCH ×2 (09:36→20:23)
[2018-05-27] MEDS: AMLODIPINE 2.5 MG TAB PO SCH (09:36)
[2018-05-27] MEDS: SERTRALINE HCL 50 MG TAB PO SCH (09:36)
[2018-05-27] MEDS: GUAIFENESIN 600 MG SA TAB PO SCH ×2 (09:36→20:23)
[2018-05-27] MEDS: FLUTICASONE 50MCG NASAL SPRAY NAS SCH ×2 (09:36→20:23)
--- NOTE | 2018-05-27 10:18 | P.PN ---
Subjective Date of Service: 05/27/18 Chief Complaint: UTI, strep pharyngitis, sepsis, HIV, history of lymphoma Subjective: Improving, Doing well Physical Examination - Vital Signs Temperature: 98.5 F Blood Pressure: 116/56 Pulse: 63 Respirations: 17 Pulse Ox (%): 92 - Physical Exam General: Alert, In no apparent distress, Oriented x3, Cooperative HEENT: Atraumatic Neck: Supple Respiratory: Clear to auscultation bilaterally, Normal air movement Cardiovascular: Normal pulses, Regular rate/rhythm Gastrointestinal: Normal bowel sounds, Soft and benign, Non-distended, No tenderness, No masses, No rebound, No guarding Musculoskeletal: No erythema, No tenderness, No warmth Integumentary: No tenderness/swelling, No erythema, No warmth, No cyanosis Neurological: Normal speech, Normal strength at 5/5 x4 extr, Normal tone, Normal affect - Studies Microbiology Data (last 24 hrs): 05/21/18 19:13 Blood - Blood Aerobic Blood Culture - Final No growth in 5 days. 05/21/18 19:13 Blood - Blood Anaerobic Blood Culture - Final 05/21/18 18:38 Blood - Blood Aerobic Blood Culture - Final No growth in 5 days. 05/21/18 18:38 Blood - Blood Anaerobic Blood Culture - Final Medications List Reviewed: Yes Assessment & Plan Discharge Plan: Home Plan to discharge in: 24 Hours Physician Review Additional Text: Impression: Right upper lobe pneumonia with noted sepsis Diarrhea UTI HIV Non-Hodgkin's lymphoma Plan: Patient continues to improve. Will continue with IV meropenem for 1 more day. This will complete her course. Patient with multiple allergies to medications and antibiotics. Anticipate discharge tomorrow. Time Spent Managing Pts Care (In Minutes): 55
[2018-05-27] MEDS: ENOXAPARIN 30 MG/0.3 ML SQ SCH (17:17)
[2018-05-27] MEDS: ROSUVASTATIN 10 MG TAB PO SCH (20:23)
--- NOTE | 2018-05-27 21:24 | PN ---
Subjective: The patient lying in bed. Denies any headache, nausea, vomiting, chest pain, abdominal pain, constipation, or diarrhea. Objective: Vital Signs: Temperature 97.9, pulse 61, respirations 16, blood pressure 141/63. Lungs: Basal crackles. Heart: S1, S2, regular. Abdomen: Soft, nontender. Bowel sounds present. Laboratory Data: WBC 3.7, hemoglobin 11.5, platelets 167. Sodium 138, potassium 4, chloride 106, bi carb 27, BUN 7, creatinine 0.8, glucose 71. Chest x-ray shows no significant changes in bilateral re ticular opacities from 05/24. Assessment And Plan: Pneumonitis versus chronic obstructive pulmonary disease changes, non-Hodgkin l ymphoma, human immunodeficiency viruses. Continue antibiotic and supportive care. We will follow e patient as needed. NF/MODL Voice ID: [id number] Report ID: [id number]
[2018-05-28] MEDS: Meropenem 500 MG in NA CHLORIDE 0.9% 100 ML IV SCH ×2 (01:24→10:01)
[2018-05-28] MEDS: LEVOTHYROXINE SOD 0.05 MG TABLET PO SCH (05:26)
[2018-05-28] MEDS: LEVOTHYROXINE SOD 0.1 MG TAB PO SCH (05:26)
--- NOTE | 2018-05-28 10:00 | P.DS ---
Admission Date: 05/22/18 Discharge Date: 05/28/18 Primary Care Provider: Dr. Walker([facility]); HIV-Dr. Burnett([facility]) Disposition: ROUTINE DISCHARGE Discharge Condition: GOOD Reason for Admission: UTI, strep pharyngitis, sepsis, HIV, history of lymphoma Consultations: Infectious disease-Dr. Pereira Procedures: CT scan: FINDINGS: Patchy reticulonodular opacities are present in the right upper lobe and minimally in the right middle and right lower lobes. These are most likely areas of pneumonia. No suspicious mass lesion. Small nodule along the major fissure on the right not clearly different from prior imaging. No pneumothorax or pleural effusion. No chest wall mass or abnormal axillary lymphadenopathy seen. Mediastinal and hilar regions show no mass or lymphadenopathy. No significant cardiac finding. Bronchial calcifications are present. No endobronchial lesion. Esophagus is grossly normal but limited in assessment. The liver, spleen and pancreas show no significant findings. Gallbladder and biliary tree are normal. Symmetric renal function is seen with no hydronephrosis, mass or other significant finding. No adrenal abnormalities. No urinary bladder abnormalities. Uterus is absent. No suspicious ovarian finding. Small remnant ovarian cyst noted on the right. This has not change from 2011. No dilated bowel loops or focal ball bowel wall thickening. No free air, free fluid or inflammatory stranding. Small mesenteric lymph nodes are present. Disc and bony degenerative changes are present. IMPRESSION: Patchy pneumonia changes are present in the right lung field seen as reticulonodular opacities primarily right upper lobe. No dense consolidation or mass. Small mesenteric lymph nodes are present. These are nonspecific. The pattern is less pronounced than seen previously. These may be remnants of the patient's prior lymphoma history. No new or progressive lymphadenopathy. Impression: Sepsis secondary to Right upper lobe pneumonia with positive Streptococcus pharyngitis Acute renal injury likely from dehydration Diarrhea HIV Non-Hodgkin's lymphoma Hypertension Hypothyroidism Hyperlipidemia Depression Brief History of Present Illness: [id number] female presented to emergency room with multiple complaints. Patient found to have acute renal injury with noted right lower lobe pneumonia. Patient with history of HIV and lymphoma. Patient had reported some diarrhea recently. Poor oral intake noted. Patient was admitted for treatment. Hospital Course: Patient presented with sepsis secondary to right upper lobe pneumonia. Patient had positive strep pharyngitis. Blood cultures, urine culture negative. Patient also had acute renal injury likely from dehydration. Patient was admitted and given IV antibiotic treatment along with fluid hydration. Her condition improved. Renal function back to baseline. Patient off oxygen. Due to her multiple allergies to medications and HIV status, patient continued with IV antibiotic therapy for total 7 days. Patient was seen and evaluated by infectious disease as well. At discharge she is without any significant chest pain, shortness of breath. She has finished IV antibiotic therapy-meropenem for 7 days. Recommendation is to stay away from any ill patients. [place] precautions address in detail with the patient. Recommend to follow up with her HIV specialist. Patient may continue with her HIV medication. Patient may continue with pro biotics at home. Patient may continue with Flonase 1 spray per nostril is twice daily. Patient had diarrhea upon admission. This resolved. C diff culture negative. Patient with HIV and non-Hodgkin's lymphoma. Recommend to follow up with her specialist at [facility]. Patient with hypertension. At discharge she may continue with Norvasc 2.5 mg daily. Recommend to maintain blood pressures less 150/80. Further adjustment can be done by her PCP. Patient with hyperlipidemia. Patient will continue with her medication-Crestor 10 mg daily. Patient with hypothyroidism. Patient will continue with her medication- levothyroxine 150 mcg daily. Patient with depression. Patient will continue with sertraline 25 mg daily. Vital Signs/Physical Exam: Temp Pulse Resp BP Pulse Ox 97.1 F 66 14 123/58 L 95 05/28/18 08:00 05/28/18 08:00 05/28/18 08:00 05/28/18 08:00 05/28/18 08:00 General: Alert, In no apparent distress, Oriented x3, Cooperative HEENT: Atraumatic Neck: Supple Respiratory: Clear to auscultation bilaterally, Normal air movement Cardiovascular: Normal pulses, Regular rate/rhythm Gastrointestinal: Normal bowel sounds, Soft and benign, Non-distended, No tenderness, No masses, No rebound, No guarding Musculoskeletal: No erythema, No tenderness, No warmth Integumentary: No tenderness/swelling, No erythema, No warmth, No cyanosis Neurological: Normal speech, Normal strength at 5/5 x4 extr, Normal tone, Normal affect Laboratory Data at Discharge: WBC 3.7 K/uL (4.3-10.9) L 05/26/18 06:48 Hgb 11.5 g/dL (12.0-15.0) L 05/26/18 06:48 Hct 33.3 % (36.0-45.0) L 05/26/18 06:48 Plt Count 167 K/uL (152-406) 05/26/18 06:48 Sodium 138 mmol/L (136-145) 05/26/18 06:48 Potassium 4.0 mmol/L (3.5-5.1) 05/26/18 06:48 BUN 7 mg/dL (7-18) 05/26/18 06:48 Creatinine 0.83 mg/dL (0.55-1.3) 05/26/18 06:48 Glucose 95 mg/dL (74-106) 05/26/18 06:48 Magnesium 2.1 mg/dL (1.8-2.4) 05/26/18 06:48 Total Bilirubin 1.0 mg/dL (0.2-1.0) 05/22/18 05:28 AST 50 U/L (15-37) H 05/22/18 05:28 ALT 28 U/L (12-78) 05/22/18 05:28 Alkaline Phosphatase 89 U/L (45-117) 05/22/18 05:28 Lipase 62 U/L (73-393) L 05/21/18 18:38 Home Medications: Amlodipine Besylate [Norvasc] 2.5 mg PO DAILY 05/21/18 Dolutegravir Sodium [Tivicay] 50 mg PO DAILY 05/21/18 Emtricitabine/Tenofov Alafenam [Descovy 200-25 mg Tablet] 1 each PO DAILY Levothyroxine [Synthroid*] 50 mcg PO [id number] 05/21/18 Levothyroxine [Synthroid*] 100 mcg PO [id number] 05/21/18 Rosuvastatin Calcium 10 mg PO BEDTIME 05/21/18 Sertraline HCl 25 mg PO DAILY 05/21/18 Fluticasone [Flonase 50MCG Nasal [place]*] 1 sprays LOVE BID #1 btl 05/28/18 New Medications: Fluticasone [Flonase 50MCG Nasal [place]*] 1 sprays LOVE BID #1 btl Patient Discharge Instructions: 1. Recommend a follow up with her PCP in 1 week to follow up this hospitalization. 2. Patient presented with sepsis secondary to right upper lobe pneumonia. Patient had positive strep pharyngitis. Blood cultures, urine culture negative. Patient also had acute renal injury likely from dehydration. Patient was admitted and given IV antibiotic treatment along with fluid hydration. Her condition improved. Renal function back to baseline. Patient off oxygen. Due to her multiple allergies to medications and HIV status, patient continued with IV antibiotic therapy for total 7 days. Patient was seen and evaluated by infectious disease as well. At discharge she is without any significant chest pain, shortness of breath. She has finished IV antibiotic therapy-meropenem for 7 days. Recommendation is to stay away from any ill patients. [place] precautions address in detail with the patient. Recommend to follow up with her HIV specialist. Patient may continue with her HIV medication. Patient may continue with pro biotics at home. The patient may continue with Flonase 1 spray per nostril twice daily. 3. Patient had diarrhea upon admission. This resolved. C diff culture negative. 4. Patient with HIV and non-Hodgkin's lymphoma. Recommend to follow up with her specialist at [facility]. 5. Patient with hypertension. At discharge she may continue with Norvasc 2.5 mg daily. Recommend to maintain blood pressures less 150/80. Further adjustment can be done by her PCP. 6. Patient with hyperlipidemia. Patient will continue with her medication-Crestor 10 mg daily. 7. Patient with hypothyroidism. Patient will continue with her medication-levothyroxine 150 mcg daily. 8. Patient with depression. Patient will continue with sertraline 25 mg daily. Diet: AHA Activity: Ad margareth Time spent managing pt's care (in minutes): 55
[2018-05-28] MEDS: SERTRALINE HCL 50 MG TAB PO SCH (10:02)
[2018-05-28] MEDS: AMLODIPINE 2.5 MG TAB PO SCH (10:02)
[2018-05-28] MEDS: GUAIFENESIN 600 MG SA TAB PO SCH (10:02)
[2018-05-28] MEDS: LACTOBACILLUS/ACIDOPHILUS TAB PO SCH (10:02)
[2018-05-28] MEDS: DESCOVY PO SCH (10:03)
[2018-05-28] MEDS: LORATADINE 10 MG TAB PO SCH (10:03)
[2018-05-28] MEDS: FLUTICASONE 50MCG NASAL SPRAY NAS SCH (10:03)
[2018-05-28] MEDS: TIVICAY 50 MG TABLET PO SCH (10:03)
[2018-05-28 10:53] VITALS: O2SAT 95
[2018-05-28 12:31] VITALS: BP 117/60; TEMP 97.7
--- NOTE | 2018-05-28 15:50 | PN ---
Subjective: The patient is lying in bed. No new acute event. Chart reviewed. Objective: Vital Signs: Temperature 97.1, pulse 66, respiration 14, blood pressure 123/58. Lungs: Basal crackles. Heart: S1, S2. Regular. Abdomen: Soft, nontender. Bowel sounds present. Extremities: No edema. Labs: No new labs available today. Blood cultures are negative. C. diff is negative. Assessment And Plan: The patient with right lung field infiltrates and history of HIV and non-Hodgki n lymphoma and with positive Streptococcal pharyngitis, was treated for pneumonia. Continue supporti ve care and the patient has improved significantly. We will follow the patient as needed. Needs to see a lung specialist as outpatient and HIV specialist. NF/MODL Voice ID: [id number] Report ID: [id number]
== END 2018-05-28 14:10 | disposition home or self-care (01) | DRG 871 ==
LOC: ER 17:48 → ERHOLD 20:22 → 2ND 22:18 → OBSVTOIN 05-22 12:09
PROVIDERS: ADMIT Hospitalist; ATTEND Family Medicine
DX: A41.9 Sepsis, unspecified organism (principal); J18.1 Lobar pneumonia, unspecified organism; N17.9 Acute kidney failure, unspecified; C85.90 Non-Hodgkin lymphoma, unspecified, unspecified site; N30.00 Acute cystitis without hematuria; R65.20 Severe sepsis without septic shock; J02.0 Streptococcal pharyngitis; E86.0 Dehydration; R19.7 Diarrhea, unspecified; Z21 Asymptomatic human immunodeficiency virus [HIV] infection status; I10 Essential (primary) hypertension; E78.5 Hyperlipidemia, unspecified; E03.9 Hypothyroidism, unspecified; F32.9 Major depressive disorder, single episode, unspecified; Z88.1 Allergy status to other antibiotic agents; Z88.0 Allergy status to penicillin; Z87.891 Personal history of nicotine dependence
CPT/HCPCS: 36415; 71046; 71250; 74176; 80048; 80053; 80076; 81003; 81015; 83605; 83690; 83735; 84145; 85025; 87040; 87045; 87046; 87081; 87086; 87088; 87177; 87209; 87493; 87804; 89055; 96360; 96361; 97161; 99285; G0378; J1650; J3475; J7030